=== PATIENT | male | born 1955 | race Caucasian/White ===

== ENCOUNTER 2018-11-21 08:42 | Day surgery (SDC) | payer OTHER ==
[~2018-11-21] VITALS: Ht 177.8 cm; Wt 87.5 kg
[~2018-11-21 08:42] MED LIST: ATOR10 PO; ATOR20 PO; AZIT250 PO; OLME5TAB PO; OLMSRTN-AMLDPN1 EACH PO; Sudogest30 MG PO
--- NOTE | 2018-11-21 09:41 | NUR ---
11/21/18 0941 Erin Haile FIRST IV UNSUCCESS IN R HAND SECOND IV UNSUCCESS IN R AC
== END 2018-11-21 11:35 | disposition home or self-care (01) ==
LOC: ORSCSDS 08:42
PROVIDERS: Student in an Organized Health Care Education/Training Program
PROC: 0DBL8ZX Excision of Transverse Colon, Via Natural or Artificial Opening Endoscopic, Diagnostic (ICD-10-PCS; principal; 2018-11-21 10:00)
PROC: 0DBM8ZX Excision of Descending Colon, Via Natural or Artificial Opening Endoscopic, Diagnostic (ICD-10-PCS; principal; 2018-11-21 10:00)
DX: Z12.11 Encounter for screening for malignant neoplasm of colon (principal); D12.4 Benign neoplasm of descending colon; D12.3 Benign neoplasm of transverse colon; I10 Essential (primary) hypertension; Z79.899 Other long term (current) drug therapy
CPT/HCPCS: 88305; J7120